=== PATIENT | female | born 1960 | race Caucasian/White ===

== ENCOUNTER → 2017-09-29 | Outpatient (CLI) | payer BC ==
--- NOTE | 2017-09-29 11:35 | RAD ---
DATE: 09/29/2017 EXAM: MAMMO LEIGH SCREENING BILATERAL HISTORY: Routine screening COMPARISON: 12/26/2015 This study was interpreted with the benefit of Computerized Aided Detection (CAD). The breast parenchyma shows scattered fibroglandular densities. Breast parenchyma level B. FINDINGS: 2-D and 3-D tomosynthesis imaging was performed in CC and MLO projections. The fibroglandular pattern is somewhat nodular in character. 3 small smooth nodules are seen inferolaterally in the right breast on oblique leigh image #17. They were probably present on the previous study, however, are better demonstrated on today's tomosynthesis images due to technical factors. No new or enlarging left breast nodules are seen. Benign type calcifications are present. No suspicious microcalcifications have developed. Benign-appearing lymph node type densities are partially visualized in the left axilla. IMPRESSION: Small right lateral breast nodules, better demonstrated on the current tomosynthesis images due to technical factors. A targeted ultrasound exam of this region is suggested for further evaluation. BI-RADS CATEGORY: 0 INCOMPLETE: NEEDS ADDITIONAL IMAGING EVALUATION AND/OR PRIOR MAMMOGRAMS FOR COMPARISON. RECOMMENDED FOLLOW-UP: ADD ADDITIONAL IMAGING PQRS compliance statement: Patient information was entered into a reminder system with a target due date for the next mammogram. Mammography is a sensitive method for finding small breast cancers, but it does not detect them all and is not a substitute for careful clinical examination. A negative mammogram does not negate a clinically suspicious finding and should not result in delay in biopsying a clinically suspicious abnormality. "Our facility is accredited by the [employer]ography [employer]."
== END | disposition home or self-care (01) ==
LOC: MAMMO 07:47
PROVIDERS: ATTEND Family Medicine
DX: Z12.31 Encounter for screening mammogram for malignant neoplasm of breast (principal); N63.10 Unspecified lump in the right breast, unspecified quadrant
CPT/HCPCS: 77063; 77067

== ENCOUNTER → 2017-10-02 | Outpatient (CLI) | payer BC ==
--- NOTE | 2017-10-02 14:09 | RAD ---
Right breast ultrasound, 10/02/2017: History: Breast nodules A targeted ultrasound exam of the inferolateral aspect of the right breast was performed. Several prominent ducts are noted. No intraluminal mass is seen in those ducts. At the 6:00 location approximately 3 cm from the nipple there is a 4 mm smooth nodule compatible with a cyst. At the 9:00 location approximately to 7 cm from the nipple there is a 5 mm well-defined nodule also compatible with a cyst. No solid-appearing or suspicious nodule is seen. IMPRESSION: Benign sonographic findings in the inferolateral aspect of the right breast, probably corresponding to the mammographic abnormalities. Routine yearly mammographic follow-up is suggested. BI-RADS 2-benign findings
--- NOTE | 2017-10-02 14:44 | RAD ---
Bone densitometry scan, 10/02/2017: History: Postmenopausal screening The lumbar spine and right hip were examined utilizing a DEXA technique. The bone mineral density in the lumbar spine as measured from the L1-L4 levels is 1.15 g/sq cm giving a T score of -0.2. This value is in the normal range. The total T score of the right hip is 0.1. IMPRESSION: Normal bone mineral density measurements.
== END | disposition home or self-care (01) ==
LOC: US 12:55
PROVIDERS: ATTEND Family Medicine
DX: Z13.820 Encounter for screening for osteoporosis (principal); N63.10 Unspecified lump in the right breast, unspecified quadrant; Z78.0 Asymptomatic menopausal state
CPT/HCPCS: 76641; 77080

== ENCOUNTER 2018-05-23 20:37 | Emergency (ER) | payer BC ==
[~2018-05-23] VITALS: Ht 177.8 cm; Wt 135.7 kg
[2018-05-23 21:14] VITALS: BP 170/92
[2018-05-23] MEDS ORDERED: ceFAZolin SODIUM 1 GM VIAL ONE (22:00)
[2018-05-23] MEDS ORDERED: FLUCONAZOLE 100 MG TABLET. PO ONE (22:00)
[2018-05-23] MEDS ORDERED: methylPREDNISolone SOD SUCC PF 125 MG/2 ML VIAL. IV ONE (22:00)
[2018-05-23] MEDS ORDERED: IV NORMAL SALINE 50ML 50 ML ONE (22:00)
[2018-05-23 22:05] LABS: BASO # 0.2 x10^3/uL (0.0-0.2); BASO % 2 % (0-3); EOS # 0.4 x10^3/uL (0.0-0.7); EOS % 4 % (0-3); HEMATOCRIT 41.8 % (36.0-47.0); HEMOGLOBIN 13.7 g/dL (12.0-15.5); LYMPH # 2.1 x10^3/uL (1.0-4.8); LYMPH % 18 % (24-48); MEAN CORPUSCULAR HEMOGLOBIN 28 pg (25-35); MEAN CORPUSCULAR HGB CONC 33 g/dL (31-37); MEAN CORPUSCULAR VOLUME 85 fL (79-100); MONO # 0.8 x10^3/uL (0.0-1.1); MONO % 7 % (0-9); NEUT # 8.2 x10^3uL (1.8-7.7); NEUT % 70 % (31-73); PLATELET COUNT 343 x10^3/uL (140-400); RED BLOOD COUNT 4.91 x10^6/uL (3.50-5.40); RED CELL DISTRIBUTION WIDTH 13.3 % (11.5-14.5); WHITE BLOOD COUNT 11.7 x10^3/uL (4.0-11.0)
[2018-05-23 22:18] LABS: ALBUMIN 3.4 g/dL (3.4-5.0); ALBUMIN/GLOBULIN RATIO 0.9 (1.0-1.7); CALCIUM 8.8 mg/dL (8.5-10.1); CREATININE 1.1 mg/dL (0.6-1.0); POTASSIUM 3.1 mmol/L (3.5-5.1); TOTAL BILIRUBIN 0.4 mg/dL (0.2-1.0); TOTAL PROTEIN 7.1 g/dL (6.4-8.2)
[2018-05-23] MEDS ORDERED: METH4TAB2 PO (22:42)
[2018-05-23] MEDS ORDERED: FLUC150T PO (22:42)
[2018-05-23] MEDS ORDERED: SULF1TAB24 PO (22:42)
--- NOTE | 2018-05-23 22:43 | PHYS DOC ---
Past History Past Medical History: High Cholesterol, Hypertension Past Surgical History: Tonsillectomy, Tubal ligation Alcohol Use: None Drug Use: None Adult General Chief Complaint Chief Complaint: SKIN PROBLEM HPI HPI Patient is a 57-year-old female who presents with complaint of red, hot swollen area under her right arm/axilla as well as her inner thighs bilaterally extending into her groin. Patient indicates that she initially had the rash under her right axilla and states that rash should been much worse a couple of days ago. She states that she has taken some Benadryl as well as putting hydrocortisone cream on the area under her arm. She states that the area under her arm is significantly improved from yesterday. She states that yesterday she started to develop the rash on her inner thighs however and that is rapidly getting worse. She states the only thing she can think of that could've cause this was having gone on a hay ride about 3 weeks ago. She denies any chest pain or shortness of breath. She also denies any fever. Review of Systems Review of Systems Constitutional: Denies fever or chills [] Respiratory: Denies cough or shortness of breath [] Cardiovascular: No additional information not addressed in HPI [] Musculoskeletal: Denies back pain or joint pain [] Integument: Complains of rash/red, swollen, tender area underneath her right arm /axilla as well as bilateral inner thighs. [] All other systems were reviewed and found to be within normal limits, except as documented in this note. Current Medications Current Medications Current Medications Medications (Trade) Dose Ordered Sig/Bethanie Start Time Stop Time Status Last Admin Dose Admin Cefazolin Sodium (Ancef) 1 gm STK-MED ONCE 05/23/18 22:00 05/23/18 22:01 DC Cefazolin Sodium 1 gm/Sodium Chloride 50 ml @ 100 mls/hr 1X ONCE 05/23/18 22:00 05/23/18 22:29 DC 05/23/18 22:00 100 MLS/HR Fluconazole (Diflucan) 200 mg 1X ONCE 05/23/18 22:00 05/23/18 22:01 DC 05/23/18 22:05 100 MG Methylprednisolone Sodium Succinate (SOLU-Medrol 125MG VIAL) 250 mg 1X ONCE 05/23/18 22:00 05/23/18 22:01 DC 05/23/18 22:00 250 MG Potassium Chloride (Klor-Con) 40 meq 1X ONCE 05/23/18 23:00 05/23/18 23:01 Sodium Chloride 50 ml @ As Directed STK-MED ONCE 05/23/18 22:00 05/23/18 22:01 DC Allergies Allergies Allergies Coded Allergies Type Severity Reaction Last Updated Verified erythromycin base Allergy Intermediate 05/23/18 Yes Physical Exam Physical Exam Constitutional: Well developed, well nourished, no acute distress, non-toxic appearance. [] HENT: Normocephalic, atraumatic. [] Eyes: PERRLA, EOMI, conjunctiva normal, no discharge. [] Neck: Normal range of motion, no tenderness, supple. [] Cardiovascular: Heart rate regular rhythm [] Lungs & Thorax: Bilateral breath sounds clear to auscultation [] Abdomen: Bowel sounds normal, soft. [] Skin: Right axilla and surrounding skin demonstrates swelling, erythema and intense warmth with tenderness measuring approximately 8 x 15 cm. Bilateral inner thighs exhibited similar findings. [] Extremities: No tenderness, no cyanosis, no clubbing, ROM intact, no edema. [] Neurologic: Alert and oriented X 3. [] Current Patient Data Vital Signs Vital Signs Date Time Temp Pulse Resp B/P (MAP) Pulse Ox O2 Delivery O2 Flow Rate FiO2 05/23/18 21:14 98.2 88 20 96 Room Air Lab Results Laboratory Tests Test 05/23/18 21:40 White Blood Count 11.7 x10^3/uL (4.0-11.0) H Red Blood Count 4.91 x10^6/uL (3.50-5.40) Hemoglobin 13.7 g/dL (12.0-15.5) Hematocrit 41.8 % (36.0-47.0) Mean Corpuscular Volume 85 fL (79-100) Mean Corpuscular Hemoglobin 28 pg (25-35) Mean Corpuscular Hemoglobin Concent 33 g/dL (31-37) Red Cell Distribution Width 13.3 % (11.5-14.5) Platelet Count 343 x10^3/uL (140-400) Neutrophils (%) (Auto) 70 % (31-73) Lymphocytes (%) (Auto) 18 % (24-48) L Monocytes (%) (Auto) 7 % (0-9) Eosinophils (%) (Auto) 4 % (0-3) H Basophils (%) (Auto) 2 % (0-3) Neutrophils # (Auto) 8.2 x10^3uL (1.8-7.7) H Lymphocytes # (Auto) 2.1 x10^3/uL (1.0-4.8) Monocytes # (Auto) 0.8 x10^3/uL (0.0-1.1) Eosinophils # (Auto) 0.4 x10^3/uL (0.0-0.7) Basophils # (Auto) 0.2 x10^3/uL (0.0-0.2) Sodium Level 137 mmol/L (136-145) Potassium Level 3.1 mmol/L (3.5-5.1) L Chloride Level 99 mmol/L (98-107) Carbon Dioxide Level 29 mmol/L (21-32) Anion Gap 9 (6-14) Blood Urea Nitrogen 15 mg/dL (7-20) Creatinine 1.1 mg/dL (0.6-1.0) H Estimated GFR (Cockcroft-Gault) 51.0 BUN/Creatinine Ratio 14 (6-20) Glucose Level 115 mg/dL (70-99) H Calcium Level 8.8 mg/dL (8.5-10.1) Total Bilirubin 0.4 mg/dL (0.2-1.0) Aspartate Amino Transferase (AST) 22 U/L (15-37) Alanine Aminotransferase (ALT) 24 U/L (14-59) Alkaline Phosphatase 67 U/L (46-116) Total Protein 7.1 g/dL (6.4-8.2) Albumin 3.4 g/dL (3.4-5.0) Albumin/Globulin Ratio 0.9 (1.0-1.7) L EKG EKG [] Radiology/Procedures Radiology/Procedures [] Course & Med Decision Making Course & Med Decision Making Pertinent Labs and Imaging studies reviewed. (See chart for details) [] Dragon Disclaimer Dragon Disclaimer This electronic medical record was generated, in whole or in part, using a voice recognition dictation system. Departure Departure: Impression: Primary Impression: Cellulitis Disposition: 01 HOME, SELF-CARE Condition: STABLE Referrals: ELKIN HILLIARD MD (PCP) Patient Instructions: Cellulitis Scripts Methylprednisolone (MEDROL) 4 Mg Tab.ds.pk 1 PKG PO UD for for inflammation, #1 PKG Prov: CLAU LAWRENCE Jr. DO 05/23/18 Fluconazole (DIFLUCAN) 150 Mg Tablet 1 TAB PO ONCE for infection, #1 TAB take dose on 05/30/2018. Prov: CLAU LAWRENCE Jr. DO 05/23/18 Sulfamethoxazole/Trimethoprim (BACTRIM DS TABLET) 1 Each Tablet 1 TAB PO BID for infection, #20 TAB Prov: CLAU LAWRENCE Jr. DO 05/23/18 Problem Qualifiers Primary Impression: Cellulitis Site of cellulitis: unspecified site Qualified Codes: L03.90 - Cellulitis, unspecified CLAU LAWRENCE Jr. DO May 23, 2018 22:43
[2018-05-23] MEDS ORDERED: diphenhydrAMINE HCL 25 MG CAPSULE PO ONE (23:00)
[2018-05-23] MEDS ORDERED: POTASSIUM CHLORIDE 20 MEQ TABLET.ER. PO ONE (23:00)
== END 2018-05-23 22:55 | disposition home or self-care (01) ==
LOC: ER 20:37
DX: L03.111 Cellulitis of right axilla (principal); L03.116 Cellulitis of left lower limb; L03.115 Cellulitis of right lower limb; E78.00 Pure hypercholesterolemia, unspecified; I10 Essential (primary) hypertension; Z88.1 Allergy status to other antibiotic agents
CPT/HCPCS: 36415; 80053; 85025; 96365; 96375; 99284; J0690; J2930

== ENCOUNTER → 2021-01-10 | Outpatient (CLI) | payer BC ==
[~2021-01-10] MED LIST: FLUC150T PO; METH4TAB2 PO; SULF1TAB24 PO
--- NOTE | 2021-01-10 15:45 | RAD ---
EXAM: Bilateral digital screening mammogram with tomosynthesis. HISTORY: 60-year-old female presents for screening mammography. TECHNIQUE: Full-field digital craniocaudal and mediolateral oblique 2D and 3D tomosynthesis images of both breasts are obtained for evaluation. Computer aided detection was applied. COMPARISON: 09/29/2017 BREAST PARENCHYMAL DENSITY: Level B - Scattered fibroglandular densities. FINDINGS: There is no new suspicious mass, microcalcification or region of architectural distortion. There are multiple areas of benign nodularity scattered throughout both breasts, the multiple study o f which favors a cystic or fibrocystic etiology. IMPRESSION: BI-RADS Category 2: Benign finding(s). RECOMMENDATION: Annual mammography is recommended. If your mammogram demonstrates that you have dense breast tissue, which could hide abnormalities, and if you have other risk factors for breast cancer that have been identified, you might benefit from s upplemental screening tests that may be suggested by your ordering physician. Dense breast tissue, i n and of itself, is a relatively common condition. This information is not provided to cause undue c oncern, but rather to raise your awareness and to promote discussion with your physician regarding th e presence of other risk factors, in addition to dense breast tissue. A report of your mammography re sults will be sent to you and your physician. You should contact your physician if you have any ques tions or concerns regarding this report. Mammography is a sensitive method for finding small breast cancers, but it does not detect them all a nd is not a substitute for careful clinical examination. A negative mammogram does not negate a clin ically suspicious finding and should not result in delay in biopsying a clinically suspicious abnorma lity. PQRS compliance statement - Patient information was entered into a reminder system with a target due date for the next mammogram. "Our facility is accredited by the [employer]." Electronically signed by: Cate Moore MD (01/10/2021 3:42 PM) [id number]
== END ==
LOC: MAMMO 14:42
PROVIDERS: ATTEND Family Medicine
DX: Z12.31 Encounter for screening mammogram for malignant neoplasm of breast (principal)
CPT/HCPCS: 77063; 77067

== ENCOUNTER 2021-09-13 17:02 | Emergency (ER) | payer BC ==
[~2021-09-13] VITALS: Ht 167.6 cm; Wt 134.5 kg
[~2021-09-13 17:02] MED LIST changes: -HYDR-2759 PO
[2021-09-13] MEDS ORDERED: HYDROcodone/APAP 7.5/325MG 1 TAB TABLET PO ONE (17:45)
[2021-09-13] MEDS ORDERED: HYDR-2759 PO (17:48)
--- NOTE | 2021-09-13 17:50 | PHYS DOC ---
Past History Past Medical History: High Cholesterol, Hypertension Past Surgical History: Tonsillectomy, Tubal ligation Alcohol Use: None Drug Use: None General Adult EDM: Chief Complaint: WRIST PAIN HPI: HPI: 61-year-old female presents with left wrist pain. The patient was walking earlier today when she tripped and fell onto her outstretched hand. She was seen by urgent care and they ordered an x-ray at our hospital. The patient was never informed of the results. She has significant pain so she decided to come in for another evaluation. She denies change in sensation. Any movement of the hand or wrist is uncomfortable. She has swelling and bruising. Review of Systems: Review of Systems: Constitutional: Denies fever or chills Eyes: Denies change in visual acuity HENT: Denies nasal congestion or sore throat Respiratory: Denies cough or shortness of breath Cardiovascular: Denies chest pain or edema GI: Denies abdominal pain, nausea, vomiting, bloody stools or diarrhea : Denies dysuria Musculoskeletal: Left wrist pain Integument: Denies rash Neurologic: Denies headache, focal weakness or sensory changes Endocrine: Denies polyuria or polydipsia Lymphatic: Denies swollen glands Psychiatric: Denies depression or anxiety Allergies: Allergies: Allergies Coded Allergies Type Severity Reaction Last Updated Verified erythromycin base Allergy Intermediate 09/13/21 Yes Physical Exam: PE: Constitutional: Well developed, well nourished, morbidly obese, no acute distress, non-toxic appearance. [] HENT: Normocephalic, atraumatic, bilateral external ears normal, oropharynx moist, no oral exudates, nose normal. [] Eyes: PERRLA, EOMI, conjunctiva normal, no discharge. [] Neck: Normal range of motion, no tenderness, supple, no stridor. [] Cardiovascular: Heart rate regular rhythm, no murmur [] Lungs & Thorax: Bilateral breath sounds clear to auscultation [] Abdomen: Bowel sounds normal, soft, no tenderness, no masses, no pulsatile masses. [] Skin: Warm, dry, no erythema, no rash. [] Back: No tenderness, no CVA tenderness. [] Extremities: Tenderness of the left wrist and hand, swelling, ecchymosis of the palmar of the hand. [] Neurologic: Alert and oriented X 3, normal motor function, normal sensory function, no focal deficits noted. [] Psychologic: Affect normal, judgement normal, mood normal. [] EKG: EKG: [] Radiology/Procedures: Radiology/Procedures: [] Heart Score: C/O Chest Pain: N/A Risk Factors: Risk Factors: DM, Current or recent (<one month) smoker, HTN, HLP, family history of CAD, obesity. Risk Scores: Score 0 - 3: 2.5% MACE over next 6 weeks - Discharge Home Score 4 - 6: 20.3% MACE over next 6 weeks - Admit for Clinical Observation Score 7 - 10: 72.7% MACE over next 6 weeks - Early Invasive Strategies Course & Med Decision Making: Course & Med Decision Making Pertinent Labs and Imaging studies reviewed. (See chart for details) The patient does not have a fracture. We will place her in a splint and I will give her pain medicine in the emergency room and discharge her with a prescri ption for the same. If her pain does not improve over the next week, she may need to repeat her x-rays. She states verbal understanding. She is stable for discharge at this time. [] Dragon Disclaimer: Dragon Disclaimer: This electronic medical record was generated, in whole or in part, using a voice recognition dictation system. Departure Departure: Impression: Primary Impression: Left wrist sprain Additional Impression: Contusion of left hand Disposition: 01 HOME / SELF CARE / HOMELESS Condition: STABLE Referrals: ELKIN HILLIARD MD (PCP) Patient Instructions: Wrist Sprain with [facility] Scripts Hydrocodone/Acetaminophen (Hydrocodone-Acetamin 5-325 mg) 1 Each Tablet 1 EACH PO Q4-6HRS PRN for PAIN, #10 TAB Prov: THEODORE LANE DO 09/13/[address] DO Sep 13, 2021 17:50
[2021-09-13 18:08] VITALS: BP 172/67
== END 2021-09-13 18:04 | disposition home or self-care (01) ==
LOC: ER 17:02
DX: S63.502A Unspecified sprain of left wrist, initial encounter (principal); S60.222A Contusion of left hand, initial encounter; E78.00 Pure hypercholesterolemia, unspecified; I10 Essential (primary) hypertension; E66.01 Morbid (severe) obesity due to excess calories; Z68.42 Body mass index [BMI] 45.0-49.9, adult; Z88.1 Allergy status to other antibiotic agents; W01.0XXA Fall on same level from slipping, tripping and stumbling without subsequent striking against object, initial encounter; Y93.01 Activity, walking, marching and hiking; Y92.89 Other specified places as the place of occurrence of the external cause; Y99.8 Other external cause status
CPT/HCPCS: 29125; 99283

== ENCOUNTER → 2021-09-13 | Outpatient (CLI) | payer BC ==
[~2021-09-13] MED LIST changes: +HYDR-2759 PO
--- NOTE | 2021-09-13 16:06 | RAD ---
XR FOREARM_LEFT 2 VIEWS, XR LT WRIST 3VIEWS Clinical Indication: Reason: SNUFFBOX MID FOREARM PAIN TENDER, FOOSH INJURY THIS MORNING / Spl. I nstructions: / History: Comparison: None. Findings: No elbow joint effusion. No dislocation of the elbow. No acute fracture of the radius or ulna. No sof t tissue swelling of the forearm. Joint spaces of the wrist are maintained. No acute fracture is identified. No soft tissue swelling of the wrist. IMPRESSION: No acute fracture or dislocation. Electronically signed by: Bharath Rodriguez MD (09/13/2021 4:04 PM) [email or web address]
== END ==
LOC: RAD 14:17
PROVIDERS: ATTEND Registered Nurse
DX: M25.532 Pain in left wrist (principal)
CPT/HCPCS: 73090; 73110